=== PATIENT | male | born 1985 | race African-American/Black ===

== ENCOUNTER 2020-08-30 08:49 | Emergency (ER) | payer SELFPAY ==
[2020-08-30] MEDS ORDERED: DIPHENHYDRAMINE HCL 50 MG/ML VIAL IV ONE (10:19)
[2020-08-30] MEDS ORDERED: PROCHLORPERAZINE EDISYLATE INJ 10 MG/2 ML VIAL IV ONE (10:19)
[2020-08-30] MEDS ORDERED: NORMAL SALINE 1000 ML 1,000 ML IV ONE (10:19)
--- NOTE | 2020-08-30 10:25 | ER Document Report ---
ED Medical Screen (RME) - General Chief Complaint: Headache Stated Complaint: HEADACHE Time Seen by Provider: 08/30/20 10:13 Primary Care Provider: DON MERCER [Primary Care Provider] - Follow up as needed - [facility] Notes: 08/30/20 10:20 34-year-old male presents to the emergency room today for evaluation after he reports he had some vision changes that started yesterday, reports he had some eye cloudiness on the right that lasted for approximately 2 to 3 minutes then he reports he had a headache thereafter. Reports throbbing pain that comes and goes. Patient states that he is nearsighted, he does not wear contacts but he does wear glasses. Denies taking any medications, is not on any blood thinners. No history of migraines or headaches. Has not tried any [id number] medications. Denies any numbness or tingling down upper or lower extremities, denies any weakness, chest pain, shortness of breath, nausea, vomiting, diarrhea. I have greeted and performed a rapid initial assessment of this patient. A comprehensive ED assessment and evaluation of the patient, analysis of test results and completion of the medical decision making process will be conducted by additional ED providers. PHYSICAL EXAMINATION: GENERAL: Well-appearing, well-nourished and in no acute distress. HEAD: Atraumatic, normocephalic. EYES: Pupils equal round extraocular movements intact, conjunctiva are normal. NECK: Normal range of motion CV: s1, s2 regular LUNGS: No respiratory distress Musculoskeletal: Normal range of motion. [employer] +2 bilaterally equally. NEUROLOGICAL: Normal speech, normal gait. SKIN: Warm, Dry, normal turgor, no rashes or lesions noted. The patient was evaluated during a global COVID-19 pandemic and that diagnosis was suspected/considered upon their initial presentation. Their evaluation, treatment and testing was consistent with current guidelines for patients who present with complaints or symptoms and may be related to COVID-19. - Related Data Allergies/Adverse Reactions: No Known Allergies Allergy (Verified 05/19/12 11:30) Past Medical History - Immunizations Hx Diphtheria, Pertussis, Tetanus Vaccination: Yes Physical Exam - Vital signs Vitals: Temp Pulse Resp BP Pulse Ox 98.1 F 72 15 154/98 H 98 08/30/20 08:53 08/30/20 08:53 08/30/20 08:53 08/30/20 08:53 08/30/20 08:53 Course - Vital Signs Vital signs: Temp Pulse Resp BP Pulse Ox 98.1 F 72 15 154/98 H 98 08/30/20 08:53 08/30/20 08:53 08/30/20 08:53 08/30/20 08:53 08/30/20 08:53 Doctor's Discharge - Discharge Referrals: LOCALMD,NO [Primary Care Provider] - Follow up as needed
[2020-08-30 10:47] LABS: ABSOLUTE EOSINOPHILS # (AUTO) 0.3 10^3/uL (0.0-0.6); ABSOLUTE MONOCYTES (AUTO) 0.3 10^3/uL (0.1-1.4); ABSOLUTE NEUT (AUTO) 3.4 10^3/uL (1.7-8.2); BASOPHILS % (AUTO) 0.9 % (0-2); HEMOGLOBIN 14.7 g/dL (13.5-17.0); LYMPHOCYTES % (AUTO) 19.2 % (13-45); MEAN CORPUSCULAR HEMOGLOBIN 29.6 pg (27.0-33.4); MEAN CORPUSCULAR HGB CONC 32.7 g/dL (32.0-36.0); MEAN CORPUSCULAR VOLUME 91 fl (80-97); MONOCYTES % (AUTO) 6.8 % (3-13); PLATELET COUNT 208 10^3/uL (150-450); RED BLOOD COUNT 4.96 10^6/uL (4.35-5.55); RED CELL DISTRIBUTION WIDTH 12.7 % (11.5-14.0); SEGMENTED NEUTROPHILS % (AUTO) 67.1 % (42-78); TOTAL CELLS COUNTED % (AUTO) 100 %
--- NOTE | 2020-08-30 11:06 | RADIOLOGY REPORT (SQ) ---
EXAM DESCRIPTION: CT HEAD WITHOUT IMAGES COMPLETED DATE/TIME: 08/30/2020 9:37 am REASON FOR STUDY: vision changes x1 day, R sided HERNANDEZ.No hx of HERNANDEZ/migr COMPARISON: None. TECHNIQUE: Axial images acquired through the brain without intravenous contrast. Images reviewed wi th bone, brain and subdural windows. Additional sagittal and coronal reconstructions were generated. Images stored on PACS. All CT scanners at this facility use dose modulation, iterative reconstruction, and/or weight based d osing when appropriate to reduce radiation dose to as low as reasonably achievable (ALARA). [facility]: Dose Right [facility]: CareDose [facility]: Dose Right [facility]: Teradose 4D [facility]: Smart Mind Factory[employer] RADIATION DOSE: CT Rad equipment meets quality standard of care and radiation dose reduction techniq ues were employed. CTDIvol: 53.2 mGy. DLP: 1124 mGy-cm. mGy. LIMITATIONS: None. FINDINGS: VENTRICLES: Normal size and contour. CEREBRUM: There is a small area of hyperdense attenuation in the posteromedial right occipital lobe w ith linear/serpiginous appearance probably a tiny subarachnoid hemorrhage. No surrounding vasogenic edema or significant mass effect. No definite underlying mass. Normal wei/white matter differentiat ion. No areas of low density in the white matter. CEREBELLUM: No masses. No hemorrhage. No alteration of density. No evidence for acute infarction. EXTRAAXIAL SPACES: No fluid collections. No masses. ORBITS AND GLOBE: No intra- or extraconal masses. Normal contour of globe without masses. CALVARIUM: No fracture. PARANASAL SINUSES: No fluid or mucosal thickening. SOFT TISSUES: No mass or hematoma. OTHER: No other significant finding. IMPRESSION: Small subarachnoid hemorrhage in the right mesial occipital lobe. Finding may represent sequelae from recently ruptured aneurysm. Neurosurgical consultation recommended. Further evaluati on with CT angiography or MR angiography should be considered. EVIDENCE OF ACUTE STROKE: NO. COMMENT: Findings discussed with Asael Saeed on 08/30/2020 at 1057 hours Eastern time. Quality ID # [id number]: Final reports with documentation of one or more dose reduction techniques (e.g., Au tomated exposure control, adjustment of the mA and/or kV according to patient size, use of iterative reconstruction technique) TECHNICAL DOCUMENTATION: JOB ID: [id number] [employer]- All Rights Reserved Reading location - IP/workstation name: [email or web address]
[2020-08-30 11:08] LABS: ALBUMIN 5.3 g/dL (3.5-5.0); ALKALINE PHOSPHATASE 65 U/L (38-126); ANION GAP 10 (5-19); ASPARTATE AMINO TRANSFERASE 25 U/L (17-59); BILIRUBIN,TOTAL 1.3 mg/dL (0.2-1.3); BLOOD UREA NITROGEN 12 mg/dL (7-20); CALCIUM 10.3 mg/dL (8.4-10.2); CARBON DIOXIDE 30 mmol/L (22-30); CHLORIDE 101 mmol/L (98-107); GLUCOSE 88 mg/dL (75-110); POTASSIUM 5.3 mmol/L (3.6-5.0); TOTAL PROTEIN 9.3 g/dL (6.3-8.2)
[2020-08-30 11:22] LABS: INTERNATIONAL RATION (INR) 0.92; PROTHROMBIN TIME 12.6 SEC (11.4-15.4)
[2020-08-30 11:23] LABS: PARTIAL THROMBOPLASTIN TIME 34.9 SEC (23.5-35.8)
[2020-08-30 11:28] LABS: ERYTHROCYTE SEDIMENTATION RATE 9 mm/hr (0-15)
--- NOTE | 2020-08-30 11:29 | ER Document Report ---
ED General - General Chief Complaint: Headache Stated Complaint: HEADACHE Time Seen by Provider: 08/30/20 10:13 Primary Care Provider: DON MERCER [NO LOCAL MD] - Follow up as needed - HPI Notes: Chief complaint: Headache and visual disturbance History of present illness: 34-year-old male non-smoker with no prior significant medical history taking no regular medications and denying any trauma presents now for evaluation of intermittent headache since yesterday with associated visual disturbance. He describes a headache as a right frontal hemicranial pressure. This was associated with some transient fading of vision in his right eye which lasted for several hours yesterday. He had a similar episode again this morning. He is currently asymptomatic. No nausea vomiting. He notes that his mother has a history of stroke. There is no one in the family with aneurysm. Patient says he has never had migraine headaches to the best of his knowledge. He denies any sensory disturbance or disturbance of his ability to speak, swallow, stand or walk. He denies any history of drug use. - Related Data Allergies/Adverse Reactions: No Known Allergies Allergy (Verified 05/19/12 11:30) Past Medical History - General Information source: Patient - Social History Smoking Status: Former Smoker Frequency of alcohol use: Social Family History: Reviewed & Not Pertinent Neurological Medical History: Reports: None Endocrine Medical History: Denies: Hx Diabetes Mellitus Type 1, Hx Diabetes Mellitus Type 2 - Immunizations Hx Diphtheria, Pertussis, Tetanus Vaccination: Yes Review of Systems - Review of Systems Notes: Constitutional: Negative for fever. HENT: Negative for sore throat. Eyes: Negative for visual changes. Cardiovascular: Negative for chest pain. Respiratory: Negative for shortness of breath. Gastrointestinal: Negative for abdominal pain, vomiting or diarrhea. Genitourinary: Negative for dysuria. Musculoskeletal: Negative for back pain. Skin: Negative for rash. Neurological: As per HPI. 10 point ROS negative except as marked above and in HPI. Physical Exam - Vital signs Vitals: Temp Pulse Resp BP Pulse Ox 98.1 F 72 15 154/98 H 98 08/30/20 08:53 08/30/20 08:53 08/30/20 08:53 08/30/20 08:53 08/30/20 08:53 - Notes Notes: GENERAL: Well-developed well-nourished male approximately stated age appearing in no acute distress. SKIN: Good turgor no rashes. HEAD: Normocephalic atraumatic. EYES: PERRLA. EOMI. Conjunctivae and sclerae clear. EARS: CANALS AND TMS CLEAR. NOSE: CLEAR. MOUTH: Moist mucosa. Good dentition. No stridor or edema. No drooling. NECK: Supple. No masses or thyromegaly. No adenopathy. Carotids 2+ without bruits. No JVD. BACK: Symmetrical without tenderness. CHEST: Respirations unlabored. Breath sounds clear and symmetrical. HEART: Regular rhythm. No murmur gallop or rub. ABDOMEN: Soft nontender without masses, organomegaly or rebound. Bowel sounds normally active. No bruits. GENITALIA: Deferred. EXTREMITIES: No edema. No calf tenderness. Cap refill less than 1.5 seconds. Dorsalis pedis and posterior tibial pulses 3+ and symmetrical. NEUROLOGICAL: GCS 15. Alert and oriented x3. Normal gait. Fluent speech. Cranial nerves II through XII intact. Sensorimotor and cerebellar normal. Normal tone. PSYCHIATRIC: Appropriate affect. - HEENT Visual acuity- Right eye: -1 20/70 Visual acuity- Left eye: -1 20/70 Visual acuity- Both eyes: -1 20/50 Corrective lenses worn: Yes Course - Re-evaluation Re-evalutation: 08/30/20 11:28 History sound somewhat like migraine. He has a normal neurologic exam at this time. I reviewed the CT with radiology. There is a question of a very subtle right occipital subarachnoid hemorrhage. I forwarded images to the on-call stroke neurologist at [facility] Dr. Filiberto Castillo for his review. In the meantime I have ordered a CTA of the head. Coags are pending. Patient appears medically stable at this time. 08/30/20 11:42 Dr. Filiberto Castillo has returned my call and requests that we send the patient to [facility] immediately by helicopter and he does not want us to delay the transfer to obtain the CTA. EMTALA form completed. Findings, clinical impression and plan of treatment have been discussed with patient/family. Understanding of current findings and recommendations has been acknowledged by them and there is agreement regarding disposition and follow-up. - Vital Signs Vital signs: Temp Pulse Resp BP Pulse Ox 98.1 F 72 15 154/98 H 98 08/30/20 08:53 08/30/20 08:53 08/30/20 08:53 08/30/20 08:53 08/30/20 08:53 - Laboratory Results Result Diagrams: 08/30/20 10:27 08/30/20 10:27 Laboratory Results Interpreted: 08/30/20 10:27 Potassium 5.3 H Calcium 10.3 H Total Protein 9.3 H Albumin 5.3 H Critical Laboratory Results Reviewed: No Critical Results - Radiology Results Radiology Results Interpreted: 08/30/20 11:[address] 08/30/20 10:18 IMPRESSION: Small subarachnoid hemorrhage in the right mesial occipital lobe. Finding may represent sequelae from recently ruptured aneurysm. Neurosurgical consultation recommended. Further evaluation with CT angiography or MR angiography should be considered. EVIDENCE OF ACUTE STROKE: NO. Critical Radiology Results Reviewed: Yes Attending or Supervising Physician who Reviewed Radiology: REYNA MELTON Discharge - Discharge Clinical Impression: Subarachnoid hemorrhage Condition: Stable Disposition: [facility] Referrals: LOCALMD,NO [NO LOCAL MD] - Follow up as needed
[2020-08-30 13:19] VITALS: BP 166/97
== END 2020-08-30 13:19 | disposition short-term general hospital (02) ==
LOC: ER 08:49
DX: I60.9 Nontraumatic subarachnoid hemorrhage, unspecified (principal); R51.9 Headache, unspecified; H53.9 Unspecified visual disturbance
CPT/HCPCS: 36415; 70450; 80053; 85025; 85610; 85652; 85730; 99285